=== PATIENT | female | born 1985 | race Caucasian/White ===

== ENCOUNTER 2017-07-21 20:43 | Inpatient (IN) | payer BC, OTHER ==
[~2017-07-21] VITALS: Ht 157.5 cm; Wt 66.0 kg
[~2017-07-21 20:43] MED LIST: PREN1TAB10 PO
[2017-07-21] MEDS ORDERED: LIDOCAINE-MPF 1%, 5ML ONE (20:54)
[2017-07-21] MEDS ORDERED: NEWBORN KIT ONE ×3 (20:54→21:52)
[2017-07-21] MEDS ORDERED: MISOPROSTOL 200 MCG TABLET ONE (20:54)
[2017-07-21] MEDS ORDERED: OXYTOCIN 30U/ 0.9% NaCL 500ML 500 ML ONE ×2 (20:55→21:11)
[2017-07-21] MEDS ORDERED: OXYTOCIN 10 UNITS/ML, 1ML ONE (20:56)
[2017-07-21] MEDS ORDERED: D5%-LACTATED RINGERS 1,000 ML IV SCH (21:04)
[2017-07-21] MEDS ORDERED: OXYTOCIN 30U/ 0.9% NaCL 500ML 500 ML IV ONE (21:04)
[2017-07-21] MEDS: LACTATED RINGERS 1,000 ML IV SCH ×2 (21:15→22:51)
[2017-07-21] MEDS ORDERED: FENTANYL PF 100 MCG/2ML IVPush PRN (21:30)
[2017-07-21] MEDS ORDERED: PENICILLIN GK 5,000,000 UNITS in SODIUM CHLORIDE 0.9% 100 ML IVPB ONE (21:30)
[2017-07-21] MEDS ORDERED: TERBUTALINE 1 MG/ML, 1ML IVPush PRN (21:30)
[2017-07-21] MEDS ORDERED: FENTANYL PF 100 MCG/2ML IV PRN (21:30)
[2017-07-21 21:32] LABS: BASOPHILS # (AUTO) 0.02 x10^3/uL (0-0.1); BASOPHILS % (AUTO) 0 % (0-1); EOSINOPHILS # (AUTO) 0.13 x10^3/uL (0-0.4); EOSINOPHILS % (AUTO) 1 % (1-7); LYMPHOCYTES # (AUTO) 1.22 x10^3/uL (1-3.4); LYMPHOCYTES % (AUTO) 11 % (22-44); MD NO; MEAN CORPUSCULAR HEMOGLOBIN 29.6 pg (27.0-34.8); MEAN CORPUSCULAR HGB CONC 33.7 g/dL (32.4-35.8); MEAN CORPUSCULAR VOLUME 87.8 fL (80-100); MONOCYTES # (AUTO) 0.78 x10^3/uL (0.2-0.8); MONOCYTES % (AUTO) 7 % (2-9); NEUTROPHILS % (AUTO) 81 % (42-75); PLATELET COUNT 196 x10^3/uL (130-400); RED BLOOD COUNT 4.47 x10^6/uL (3.82-5.3); RED CELL DISTRIBUTION WIDTH 13.1 % (9.6-15.2)
[2017-07-21] MEDS ORDERED: BUPIVACAINE 0.25% ONE (22:47)
[2017-07-21] MEDS ORDERED: FENTANYL PF 100 MCG/2ML ONE (22:47)
[2017-07-21] MEDS ORDERED: FENTANYL/BUPIV./NS/PF 250 ML EPIDCONT ONE (22:47)
[2017-07-22] MEDS ORDERED: PENICILLIN GK 2,500,000 UNITS in DEXTROSE 5% 100 ML IVPB SCH (01:30)
[2017-07-22] MEDS ORDERED: LACTATED RINGERS 1,000 ML IV SCH (02:16)
[2017-07-22] MEDS ORDERED: FENTANYL/BUPIV./NS/PF 250 ML EPIDCONT SCH (02:16)
[2017-07-22] MEDS ORDERED: LACTATED RINGERS 1,000 ML IVBOLUS PRN (02:30)
[2017-07-22] MEDS ORDERED: ONDANSETRON 2MG/ML, 2ML IVPush PRN (02:30)
[2017-07-22] MEDS ORDERED: EPHEDRINE 50 MG/ML, 1ML IVPush PRN (02:30)
[2017-07-22] MEDS ORDERED: OXYTOCIN 30U/ 0.9% NaCL 500ML 500 ML ONE (03:13)
[2017-07-22] MEDS: OXYTOCIN 30U/ 0.9% NaCL 500ML 500 ML IV SCH ×3 (03:15→23:11)
[2017-07-22] MEDS ORDERED: CARBOPROST TROMETHAMINE 250 MCG/ML, 1ML IM PRN (03:30)
[2017-07-22] MEDS ORDERED: BISACODYL 10 MG SUPP PR PRN (03:30)
[2017-07-22] MEDS ORDERED: OXYcodone/APAP 5/325MG TABLET PO PRN (03:30)
[2017-07-22] MEDS ORDERED: GLYCERIN ADULT SUPP PR PRN (03:30)
[2017-07-22] MEDS ORDERED: METHYLERGONOVINE 0.2 MG/ML IM PRN (03:30)
[2017-07-22] MEDS ORDERED: ACETAMINOPHEN 325 MG TABLET PO PRN ×2 (03:30)
[2017-07-22] MEDS ORDERED: ONDANSETRON 2MG/ML, 2ML IV PRN (03:30)
[2017-07-22] MEDS ORDERED: MISOPROSTOL 200 MCG TABLET PR PRN (03:30)
[2017-07-22 04:40] VITALS: BP 119/72
[2017-07-22 08:00] VITALS: BP 114/72
[2017-07-22] MEDS: PRENATAL VIT/IRON/FA 1 EACH TABLET PO SCH (09:00)
[2017-07-22] MEDS: DOCUSATE 100 MG CAPSULE PO PRN ×2 (09:18→22:16)
[2017-07-22 11:18] LABS: MEAN CORPUSCULAR HEMOGLOBIN 29.5 pg (27.0-34.8); MEAN CORPUSCULAR HGB CONC 33.3 g/dL (32.4-35.8); MEAN CORPUSCULAR VOLUME 88.5 fL (80-100); PLATELET COUNT 175 x10^3/uL (130-400); RED BLOOD COUNT 4.44 x10^6/uL (3.82-5.3); RED CELL DISTRIBUTION WIDTH 13.3 % (9.6-15.2)
[2017-07-22 12:00] VITALS: BP 112/75
[2017-07-22 12:22] LABS: BASOPHILS # (AUTO) 0.02 x10^3/uL (0-0.1); BASOPHILS % (AUTO) 0 % (0-1); EOSINOPHILS # (AUTO) 0.08 x10^3/uL (0-0.4); EOSINOPHILS % (AUTO) 1 % (1-7); LYMPHOCYTES # (AUTO) 0.96 x10^3/uL (1-3.4); LYMPHOCYTES % (AUTO) 6 % (22-44); MD SCAN; MONOCYTES # (AUTO) 0.47 x10^3/uL (0.2-0.8); MONOCYTES % (AUTO) 3 % (2-9); NEUTROPHILS % (AUTO) 90 % (42-75)
[2017-07-22] MEDS: IBUPROFEN 600 MG TABLET PO PRN ×2 (15:27→22:16)
[2017-07-22 15:33] VITALS: BP 116/71
[2017-07-22 20:00] VITALS: BP 115/79
[2017-07-23 07:30] VITALS: BP 117/65
[2017-07-23] MEDS: OXYcodone/APAP 5/325MG TABLET PO PRN ×2 (07:56→15:31)
[2017-07-23] MEDS: PRENATAL VIT/IRON/FA 1 EACH TABLET PO SCH (07:56)
[2017-07-23] MEDS: DOCUSATE 100 MG CAPSULE PO PRN (07:56)
[2017-07-23] MEDS: OXYTOCIN 30U/ 0.9% NaCL 500ML 500 ML IV SCH (09:11)
[2017-07-23] MEDS: IBUPROFEN 600 MG TABLET PO PRN (15:31)
[2017-07-23] MEDS ORDERED: IBUP-1222 PO (17:21)
[2017-07-23] MEDS ORDERED: OXYC-302 PO (17:22)
== END 2017-07-23 19:00 | disposition home or self-care (01) | DRG 774 ==
LOC: LDOP 20:43 → LDIP 21:06 → 2NW 07-22 04:30
PROVIDERS: ADMIT Obstetrics & Gynecology; ATTEND Obstetrics & Gynecology
PROC: 10E0XZZ Delivery of Products of Conception, External Approach (ICD-10-PCS; principal; 2017-07-22)
PROC: 0HQ9XZZ Repair Perineum Skin, External Approach (ICD-10-PCS; 2017-07-22)
PROC: 3E0R3BZ Introduction of Anesthetic Agent into Spinal Canal, Percutaneous Approach (ICD-10-PCS; 2017-07-22)
PROC: 00HU33Z Insertion of Infusion Device into Spinal Canal, Percutaneous Approach (ICD-10-PCS; 2017-07-22)
DX: O99.824 Streptococcus B carrier state complicating childbirth (principal); O44.43 Low lying placenta NOS or without hemorrhage, third trimester; Z37.0 Single live birth; O70.0 First degree perineal laceration during delivery; Z3A.38 38 weeks gestation of pregnancy; Z88.0 Allergy status to penicillin
CPT/HCPCS: 36415; 85025; 86850; 86900; 89060; J2540; J3010; J3490; J2590; J7120; J7121; Q0114